=== PATIENT | male | born 1965 | race Caucasian/White ===

== ENCOUNTER 2016-06-28 15:57 | Inpatient (IN) | payer MEDICAID ==
[~2016-06-28] VITALS: Ht 175.3 cm; Wt 77.1 kg
[~2016-06-28 15:57] MED LIST: DEPAKOTE ER500 MG PO; DEPAKOTE500 MG PO; SEROQUEL100 MG PO; ZOLOFT25 MG PO
[2016-06-28 16:17] VITALS: BP 151/89
[2016-06-28] MEDS ORDERED: SOMA350 MG PO (16:27)
[2016-06-28] MEDS ORDERED: PEPCID20 MG PO (16:28)
[2016-06-28] MEDS ORDERED: NEURONTIN 300300 MG PO (16:28)
[2016-06-28] MEDS ORDERED: ZOFRAN4 MG PO (16:29)
[2016-06-28] MEDS ORDERED: OXYCONTIN30 MG PO (16:30)
[2016-06-28] MEDS ORDERED: OXYCODONE HCL10 MG PO (16:31)
[2016-06-28] MEDS ORDERED: MIRALAX17 GM PO ×2 (17:01→17:02)
[2016-06-28] MEDS ORDERED: TEMAZEPAM30 MG PO (17:02)
--- NOTE | 2016-06-28 18:04 | NUR ---
SITTING UP IN BED WATCHING TV. ATE SUPPER AND USED WALKER TO GET TO BATHROOM TO VOID. PAIN MEDS CONTROLLING PAIN. CALL LIGHT IN REACH
--- NOTE | 2016-06-28 20:03 | NUR ---
PT LYING IN BED AND WATCHING TV.
--- NOTE | 2016-06-28 20:30 | NUR ---
PT C/O OF PAIN IN UPPER LEFT LEG, A LEVEL OF 9, ON A SCALE OF 0-10, PAIN MED GIVEN.
--- NOTE | 2016-06-28 23:08 | NUR ---
PT STATE HE HAS LESS PAIN, A SCALE OF 7, CONTINUE MONITOR CLOSELY.
[2016-06-29 01:59] VITALS: BP 140/82
--- NOTE | 2016-06-29 02:50 | NUR ---
PT C/O PAIN IN LEG, A LEVEL OF 7, ON A SCALE OF 0-10. PAIN MED GIVEN. MONITOR CLOSELY.
--- NOTE | 2016-06-29 03:40 | NUR ---
PT STATE HE HAS LESS PAIN, A LEVEL OF 5, CONTINUE MONITOR CLOSELY.
--- NOTE | 2016-06-29 05:42 | NUR ---
PT SIT UP AND WATCH TV.
[2016-06-29 06:36] LABS: BASOPHILS 0.6 % (0-2); EOSINOPHILS 6.7 % (0-7); HEMATOCRIT 36.3 % (42.0-54.0); HEMOGLOBIN 11.8 g/dL (13.5-17.5); IMMATURE GRANULOCYTES 0.2 % (0-5); LYMPHOCYTES 40.6 % (15-50); MCH 30.3 pg (26.0-34.0); MCHC 32.5 g/dL (31.0-37.0); MCV 93.3 fL (80.0-100.0); MEAN PLATELET VOLUME 9.6 fL (7.4-10.4); MONOCYTES 9.5 % (2-11); NEUTROPHILS 42.4 % (40-80); RBC 3.89 10x6/uL (4.20-6.10); RDW 15.2 % (11.5-14.5)
[2016-06-29 06:50] LABS: PLATELET COUNT 273 10x3/uL (130-400)
[2016-06-29 07:05] LABS: CALC OSMOLALITY 274 mosm/kg (275-300); CALCIUM 8.5 mg/dL (8.5-10.1); CARBON DIOXIDE 29.5 mmol/L (21.0-32.0); CHLORIDE - SERUM 102 mmol/L (98-107); CREATININE - SERUM 0.8 mg/dL (0.6-1.3); GLUCOSE 104 mg/dL (74-106); POTASSIUM - SERUM 3.7 mmol/L (3.5-5.1); SODIUM 138 mmol/L (136-145); UREA NITROGEN 9 mg/dL (7-18); eGFR NON AFRICAN AMERICAN > 90 mL/min (90-120)
[2016-06-29 08:47] VITALS: BP 141/76
[2016-06-29 12:42] VITALS: Ht 175.3 cm; Wt 77.1 kg
[2016-06-29 18:53] VITALS: BP 129/71
--- NOTE | 2016-06-29 19:15 | NUR ---
PT SITTING UP IN RECLINER CHAIR. PT COMPLAINS OF HAVING A PAIN LEVEL OF 9, BUT STATES THAT THE PAIN GOES IN AND OUT. PT IS ALERT & ORIENTED. PT USES WALKER. CALL LIGHT WITHIN REACH.
--- NOTE | 2016-06-29 19:30 | NUR ---
PT WOULD PREFER TO HAVE SOME FREEDOM IN HIS ROOM, ENCOURAGED PT TO REQUEST ASSISTANCE IF FEELING WEAK OR DIZZY FOR EXAMPLE OR IN PAIN, PT ALERT, ORIENTED, RESPIRATIONS REGULAR AND UNLABORED.
--- NOTE | 2016-06-29 20:48 | NUR ---
PT SIGNED BED/CHAIR ALARM WAIVER.
--- NOTE | 2016-06-30 00:48 | NUR ---
PT IN BED WITH HOB UP FOR COMFORT, EYES CLOSED, CHEST RISING AND FALLING, BED BED IN LOWEST POSITION AND CALL LIGHT WITHIN REACH.
--- NOTE | 2016-06-30 04:24 | NUR ---
PT IN BED WITH HOB UP FOR COMFORT, EYES CLOSED, RESPIRATIONS EVEN AND UNLABORED, BED IN LOWEST POSITION AND CALL LIGHT WITHIN REACH.
[2016-06-30 07:00] VITALS: BP 138/89
--- NOTE | 2016-06-30 08:10 | NUR ---
SHIFT ASSMT COMPLETED.DRSG INTACT TO L AKA.CL IN REACH.
--- NOTE | 2016-06-30 12:00 | NUR ---
SITTING UP IN CHAIR EATING LUNCH.INDEPENDENT IN ROOM.
--- NOTE | 2016-06-30 16:00 | NUR ---
IN WC.DENIES NEEDS.
[2016-06-30 19:00] VITALS: BP 130/84
--- NOTE | 2016-06-30 19:00 | NUR ---
PT LYING IN BED, WATCHING TV. ALERT AND ORIENTED. BED WAIVER. PT HAS NO COMPLAINTS AT THIS TIME. BED IN LOWEST POSITION AND CALL LIGHT WITHIN REACH.
--- NOTE | 2016-06-30 23:00 | NUR ---
PT LYING IN BED, EYES CLOSED, CHEST RISING AND FALLING, BED IN LOWEST POSITION AND CALL LIGHT WITHIN REACH.
--- NOTE | 2016-07-01 03:07 | NUR ---
PT RESTING, EYES CLOSED. BED LOW. CL IN REACH.
--- NOTE | 2016-07-01 05:08 | NUR ---
PT IN BED, WATCHING TV. BED IN LOWEST POSITION AND CALL LIGHT WITHIN REACH.
--- NOTE | 2016-07-01 06:54 | NUR ---
ONE STAPLE WAS HALF WAY OUT OF LEFT LEG STUMP. REMOVED STAPLE. PT TOLERATED PROCEDURE WELL.
--- NOTE | 2016-07-01 08:15 | NUR ---
PT SITTING ON SIDE OF THE BED EATING BREAKFAST CALL LIGHT IN REACH WILL MONITER
--- NOTE | 2016-07-01 12:00 | NUR ---
AD BRYSON IN ROOM.DENIES NEEDS.
--- NOTE | 2016-07-01 14:30 | NUR ---
REMOVED 68 DAISY FROM LEFT STUMP INCISION WELL APPROXIMATED APPLIED STERI STRIPS PT TOLERATED WELL
--- NOTE | 2016-07-01 17:16 | NUR ---
PT RESTING IN BED WITH EYES OPEN CALL LIGHT IN REACH WILL MONITER
[2016-07-01 20:00] VITALS: BP 153/96
--- NOTE | 2016-07-01 20:00 | NUR ---
PT IN W/C, WATCHING TV. ALERT AND ORIENTED. BED WAIVER. PT HAS NO COMPLAINTS AT THIS TIME. CALL LIGHT WITHIN REACH.
--- NOTE | 2016-07-02 | NUR ---
PT LYING IN BED, EYES CLOSED, CHEST RISING AND FALLING, BED IN LOWEST POSITION AND CALL LIGHT WITHIN REACH.
--- NOTE | 2016-07-02 04:00 | NUR ---
PT IN W/C, WATCHING TV. CALL LIGHT WITHIN REACH.
--- NOTE | 2016-07-02 05:42 | NUR ---
PT RESTING, EYES CLOSED. BED LOW. CL IN REACH.
[2016-07-02 07:23] LABS: BASOPHILS 0.4 % (0-2); EOSINOPHILS 6.5 % (0-7); HEMATOCRIT 38.3 % (42.0-54.0); HEMOGLOBIN 12.5 g/dL (13.5-17.5); IMMATURE GRANULOCYTES 0.2 % (0-5); LYMPHOCYTES 31.8 % (15-50); MCH 30.8 pg (26.0-34.0); MCHC 32.6 g/dL (31.0-37.0); MCV 94.3 fL (80.0-100.0); MEAN PLATELET VOLUME 9.5 fL (7.4-10.4); MONOCYTES 9.9 % (2-11); NEUTROPHILS 51.2 % (40-80); PLATELET COUNT 277 10x3/uL (130-400); RBC 4.06 10x6/uL (4.20-6.10); RDW 15.4 % (11.5-14.5); WBC 5.3 10x3/uL (4.8-10.8)
[2016-07-02 07:30] LABS: CALC OSMOLALITY 273 mosm/kg (275-300); CALCIUM 8.8 mg/dL (8.5-10.1); CARBON DIOXIDE 31.6 mmol/L (21.0-32.0); CHLORIDE - SERUM 101 mmol/L (98-107); CREATININE - SERUM 0.7 mg/dL (0.6-1.3); GLUCOSE 94 mg/dL (74-106); POTASSIUM - SERUM 3.8 mmol/L (3.5-5.1); SODIUM 138 mmol/L (136-145); UREA NITROGEN 6 mg/dL (7-18); eGFR NON AFRICAN AMERICAN > 90 mL/min (90-120)
--- NOTE | 2016-07-02 07:30 | NUR ---
SITTING UP IN CHAIR IN ROOM WATCHING TV. APPEARS ANXIOUS C/O HE IS WANTING A CIGARETTE. DENIES WANTING SMOKING PATCH. UP WITH W/C AND WALKER.
[2016-07-02 10:13] VITALS: BP 124/67
--- NOTE | 2016-07-02 10:28 | NUR ---
STILL ANXIOUS. SITTING IN ROOM WATCHING TV. NOW ASKING FOR SMOKING PATCH.
--- NOTE | 2016-07-02 16:36 | NUR ---
SITTING IN W/C IN ROOM. STILL RESTLESS BUT NOT BAD THIS MORNING.
--- NOTE | 2016-07-02 18:15 | NUR ---
SITTING UP IN CHAIR EATING SUPPER. DENIES NEEDS. CALL LIGHT IN REACH
[2016-07-02 19:18] VITALS: BP 150/87
--- NOTE | 2016-07-02 20:12 | NUR ---
PT C/O PAIN IN LEG, A SCALE OF 9, ON A SCALE OF 0-10. PAIN MED GIVEN, AND MONITOR CLOSELY.
--- NOTE | 2016-07-02 21:20 | NUR ---
PT STATE LESS PAIN IN LEG AFTER PAIN MED. BUT STILL A SCALE OF 6, CONTINUE MONITOR CLOSELY.
--- NOTE | 2016-07-03 00:20 | NUR ---
PT REST QUIETLY IN BED, BED IN LOW POSITION, CALL LIGHT WITHIN REACH.
--- NOTE | 2016-07-03 01:00 | NUR ---
PT RESTING, EYES CLOSED. BED LOW. CL IN REACH.
--- NOTE | 2016-07-03 04:07 | NUR ---
PT WOKE UP IN BED, AND STATE HE CAN'T GO BACK SLEEP, BECAUSE PAIN IN LEG, A SCALE OF 8, PAIN MED GIVEN, MONITOR CLOSELY.
--- NOTE | 2016-07-03 04:55 | NUR ---
PT STATE LESS PAIN IN LEG AFTER PAIN MED, A SCALE OF 5. CONTINUE MONITOR CLOSELY.
--- NOTE | 2016-07-03 08:06 | NUR ---
SITTING IN CHAIR IN ROOM EATING BREAKFAST. CALL LIGHT IN REACH
--- NOTE | 2016-07-03 09:41 | RHP ---
PATIENT: YEE BROOKS MEDICAL RECORD: [id number] ACCOUNT: [id number] LOCATION:[facility]1116 : 61 ADMISSION DATE: 06/28/16 REHABILITATION HISTORY AND PHYSICAL EXAMINATION POST ADMISSION PHYSICIAN EXAMINATION Post-admission Physical Examination and History and Physical DATE OF ADMISSION: 06/28/2016 ADMITTING DIAGNOSIS: Left didwp-tme-duvg amputation. HISTORY OF PRESENT ILLNESS: The patient was admitted for rehab for a left fvbus-mrl-mxzo amputation. He was in the [facility] for left gpuak-jkr-onpa amputation by Dr. Silvano Patel. He has had multiple failed surgeries to his left knee that originally started with his first surgery in May 2014 with a total knee arthroplasty that has had several revisions and ultimately failed and after evaluation between the physician and the patient, they opted to have a left kkphk-umv-ahyw amputation. He will definitely need inpatient rehab to get back to his prior level of functioning and also a prosthesis to assess this amputation. COMORBIDITIES: Include a left prosthetic knee, seizure disorder following multiple failed left lower extremity 6 surgeries, history of substance abuse, depression and pain. PAST MEDICAL HISTORY: Significant for depression, left femur fracture, left knee pain, infection over prosthetic knee joint, a seizure disorder and substance abuse. PAST SURGICAL HISTORY: Includes left lower extremity times 5. ALLERGIES: CODEINE AND BENADRYL. CURRENT MEDICATIONS: He is on a Nicoderm patch, Restoril 30 mg q.h.s. p.r.n. He is on Colace 100 mg b.i.d., polyethylene glycol 17 grams in 8 ounces of water daily. He is on Oxy.IR 10 mg q. 4 hours p.r.n. pain, OxyContin 20 mg b.i.d., Zofran 4 mg q.8 hours p.r.n., Neurontin 300 mg t.i.d., Pepcid 20 mg b.i.d. and Soma 350 mg t.i.d. p.r.n. HABITS: He does have a history of tobacco use. He denies any type of illicit drug use at this time. FAMILY HISTORY: Noncontributory. SOCIAL HISTORY: The patient wants to be able to continue living at home with family nearby and hopefully get back to his prior level of functioning prior to his left vnpsu-kew-ltav amputation. REVIEW OF SYSTEMS: GENERAL: He denies weakness or fatigue. HEENT: He denies cold, cough, or congestion. CARDIOVASCULAR: Denies chest pain. PHYSICAL EXAMINATION: HISTORY AND PHYSICAL [id number] CECILIAYEE VITAL SIGNS: Stable, afebrile. GENERAL: An elderly gentleman, in no acute distress, alert upon exam. HEENT: Normocephalic and atraumatic. Mucosa moist. NECK: Supple. No lymphadenopathy. LUNGS: Clear. HEART: Regular rate and rhythm. ABDOMEN: Benign. EXTREMITIES: Consistent with a left wcmkj-sgn-lslj amputation, still has brice in place that we are going to removed today. NEUROLOGIC: Seems intact. LABORATORY DATA: His white count is 5000, his H&H are 11.8 and 36.3 and platelet count was 273. His chemistry showed a sodium of 138, potassium 3.7, BUN and creatinine of 9 and 0.8 and blood sugar is noted to be 104. ASSESSMENT: This is a 50-year-old gentleman, who was admitted to the rehab with a working diagnosis of left wpxxz-fsf-pqlo amputation. The patient has potential to make improvement. We instituted the following multidisciplinary therapies including to, but not limited to physical, occupational, respiratory, speech, nutritional services, prosthetics and orthotics. Given his complex condition and risk for more complications, rehabilitation services cannot be provided at a lower level of care such as a halfway facility. PLAN: 1. Admit to [facility] rehab for intensive inpatient therapy to include the following disciplines: A. Physical therapy to improve gait, all transfer skills and bed mobility to a modified independent level. B. Occupational therapy to improve activities of daily living to a modified independent level. C. Case management to assist with discharge planning and placement options. D. Nutrition to assist with nutritional needs. E. Rehabilitation nursing to assist in monitoring the patient's underlying medical conditions and to assist with any type of bowel or bladder management. 2. The patient's current medication and medical care will be continued. 3. The patient will be placed on standard fall precautions. 4. The patient's estimated length of stay is approximately 7-10 days. 5. We will go ahead and consult ____ brace to start working on getting him on artificial limb. TRANSINT:[id number] Voice Confirmation ID: [id number] DOCUMENT ID: [id number] BLU GUZMAN MD at [id number] CC: [id number] DICTATION DATE: 07/01/16 1130 INSPECTOR MACHINED PARTS: 07/01/16 192 ADM IN [facility] [address] [place] [address]
[2016-07-03 09:46] VITALS: BP 139/100
--- NOTE | 2016-07-03 12:13 | NUR ---
per patient request , he would like referral sent to [facility] for possible admisssion. referral faxed tenative discharge date is 07/10/16.
--- NOTE | 2016-07-03 14:00 | NUR ---
Nutrition Follow Up: Pt reported that everything is great. Pt is eating 100% meal avg on a regular diet. Wt stable. +BM 07/02/16. Meds and labs reviewed. Rec continue current diet. RD following.
[2016-07-03 19:12] VITALS: BP 131/78
--- NOTE | 2016-07-03 19:45 | NUR ---
PT UP IN W/C, DENIES PAIN, DENIES NEEDS, RESPIRATIONS REGULAR AND UNLABORED. NO S/S OF ACUTE DISTRESS.
--- NOTE | 2016-07-03 19:50 | NUR ---
PT SIT UP IN BED AND WATCH TV.
--- NOTE | 2016-07-03 20:10 | NUR ---
PT C/O OF PAIN IN LEG, A SCALE OF 7, PAIN MED GIVEN.
--- NOTE | 2016-07-03 21:50 | NUR ---
PT STATE HIS LEG LESS PAIN AFTER PAIN MED, A SCALE OF 5. CONTINUE MONITOR CLOSELY.
--- NOTE | 2016-07-04 01:50 | NUR ---
PT REST QUIETLY IN BED, BED IN LOW POSITION, CALL LIGHT WITHIN REACH.
--- NOTE | 2016-07-04 04:13 | NUR ---
PT REST QUIETLY IN BED, EYE CLOSE, BED IN LOW POSITION, CALL LIGHT WITHIN REACH.
--- NOTE | 2016-07-04 08:00 | NUR ---
UP IN WC IN HALLWAY.DENIES NEEDS.
[2016-07-04 08:28] VITALS: BP 133/82
--- NOTE | 2016-07-04 08:45 | NUR ---
PT RESTING IN BED WITH EYES OPEN CALL LIGHT IN REACH WILL MONITER
--- NOTE | 2016-07-04 14:39 | NUR ---
CARE TEAM MEETING: PATIENT PROGRESSING IN THERAPY . TENATIVE DISCHARGE DATE IS 07/10/16. SPOKE WITH PATIENT REGARDING GOING TO ANOTHER FACILITY DUE TO INSURANCE. WILL GO TO [facility] WILL ACCEPT HIS INSURANCE. WILL CONTINUE TO FOLLOW WITH PATIENT.
--- NOTE | 2016-07-04 16:46 | NUR ---
PT RESTING IN BED WITH EYES OPEN CALL LIGHT IN REACH WILL MONITER
[2016-07-04 19:40] VITALS: BP 140/83
--- NOTE | 2016-07-04 19:40 | NUR ---
PT IN W/C, WATCHING TV. ALERT AND ORIENTED. BED WAIVER. PT HAS NO COMPLAINTS AT THIS TIME. CALL LIGHT WITHIN REACH.
--- NOTE | 2016-07-04 23:40 | NUR ---
PT LYING IN BED, EYES CLOSED, CHEST RISING AND FALLING, BED IN LOWEST POSITION AND CALL LIGHT WITHIN REACH.
--- NOTE | 2016-07-05 03:10 | NUR ---
PT RESTING QUIETLY, NO S/S OF ACUTE DISTRESS.
--- NOTE | 2016-07-05 04:40 | NUR ---
PT IN W/C, WATCHING TV. CALL LIGHT WITHIN REACH.
--- NOTE | 2016-07-05 08:00 | NUR ---
SHIFT ASSMT COMPLETED.DENIES NEEDS.INDEPENDENT IN ROOM.KILN STOKER ON LT AKA.
[2016-07-05 08:12] VITALS: BP 124/82
--- NOTE | 2016-07-05 12:00 | NUR ---
EATING LUNCH.CL IN REACH.
--- NOTE | 2016-07-05 16:00 | NUR ---
SITTING UP IN WC.
[2016-07-05 20:05] VITALS: BP 142/74
--- NOTE | 2016-07-05 20:15 | NUR ---
PT C/O PAIN AND DISCOMFORT OF STUMP TRUCKLOAD CHECKER, PT VERBALIZED UNDERSTANDING OF PURPOSE OF THE STUMP TRUCKLOAD CHECKER. PT TALKATIVE. PT ABLE TO DON AND UNDON STUMP TRUCKLOAD CHECKER, INCISION WELL APPROXIMATED, TWO STERI STRIPS REMAINING. NO S/S OF REDNESS.
--- NOTE | 2016-07-05 21:45 | NUR ---
PT VISITING IN HALLWAY WITH OTHER PATIENT. DENIES ANY NEEDS.
--- NOTE | 2016-07-06 00:10 | NUR ---
RESTING QUIETLY IN ROOM WATCHING TV, NO NEEDS NOTED.
--- NOTE | 2016-07-06 02:18 | NUR ---
PT RESTING IN SUPINE POSITION, RESPIRATIONS REGULAR AND UNLABORED. EYES CLOSED. . N0 S/S OF ACUTE DISTRESS.
--- NOTE | 2016-07-06 06:51 | NUR ---
pt up in w/c roaming the halls, c/o phantom pain. pt states the gabapentin helps.
[2016-07-06 07:30] LABS: BASOPHILS 0.4 % (0-2); EOSINOPHILS 8.6 % (0-7); HEMATOCRIT 38.4 % (42.0-54.0); HEMOGLOBIN 12.5 g/dL (13.5-17.5); IMMATURE GRANULOCYTES 0.2 % (0-5); LYMPHOCYTES 41.3 % (15-50); MCH 30.4 pg (26.0-34.0); MCHC 32.6 g/dL (31.0-37.0); MCV 93.4 fL (80.0-100.0); MEAN PLATELET VOLUME 9.2 fL (7.4-10.4); MONOCYTES 13.2 % (2-11); NEUTROPHILS 36.3 % (40-80); PLATELET COUNT 243 10x3/uL (130-400); RBC 4.11 10x6/uL (4.20-6.10); RDW 14.9 % (11.5-14.5); WBC 4.8 10x3/uL (4.8-10.8)
[2016-07-06 07:45] LABS: CALC OSMOLALITY 272 mosm/kg (275-300); CARBON DIOXIDE 32.3 mmol/L (21.0-32.0); CHLORIDE - SERUM 102 mmol/L (98-107); CREATININE - SERUM 0.8 mg/dL (0.6-1.3); GLUCOSE 107 mg/dL (74-106); POTASSIUM - SERUM 3.8 mmol/L (3.5-5.1); SODIUM 137 mmol/L (136-145); UREA NITROGEN 11 mg/dL (7-18); eGFR NON AFRICAN AMERICAN > 90 mL/min (90-120)
--- NOTE | 2016-07-06 08:05 | NUR ---
In w/c self propeling self in hallway, verbalized name and , no distress assessed. Transfers self without any incidents.
[2016-07-06 10:48] VITALS: BP 139/99
--- NOTE | 2016-07-06 12:59 | NUR ---
LEFT MESSAGE ON VOICEMAIL REGARDING WHY PATIENT NEEDING A SNF. LEFT MESSAGE THAT NO ONE AT HOME TO HELP WITH WOUND CARE AND NEEDING TO WEAR SHRINKAGE STOCKING FOR HIS PROTHESIS AND NEEDING TO LEARN TO WALK. LEFT FOR HER TO CALL IF ANY QUESTIONS. HER NUMBER IS [phone]. [phone]. CLINICALS FAXED TO [phone] AUTH # [id number] WITH CONFORMATION RECIEVED
--- NOTE | 2016-07-06 13:55 | NUR ---
In with therapy, no distress.
--- NOTE | 2016-07-06 18:39 | NUR ---
Sitting up in W/C, self propels. No distress noted. Verbalized no complaints.
--- NOTE | 2016-07-06 19:30 | NUR ---
PT SIT IN BED WATCH TV.
--- NOTE | 2016-07-06 21:10 | NUR ---
PT C/O PAIN IN LEG, A SCALE OF 8, PAIN MED GIVEN, CONTINUE MONITOR CLOSELY.
[2016-07-07 02:06] VITALS: BP 119/72
--- NOTE | 2016-07-07 03:15 | NUR ---
PT. IS UP IN W/C IN THE THERAPY ROOM DOING HIS LAUNDRY AND DRINKING COFFEE. NO VOICED NEEDS AT THIS TIME AND HE KNOWS HOW TO GET A HOLD OF NURSE WHEN NEEDED.
--- NOTE | 2016-07-07 03:44 | NUR ---
PT AWAKE AND DRINK COFFEE.
--- NOTE | 2016-07-07 09:00 | NUR ---
SITTING IN W/C IN ROOM. PAIN MEDS GIVEN ORDERED AND REQUESTED. STATES HE IS HAVING PAIN TO LLE STUMP AND HAVING PHANTOM PAIN ALSO TO LLE.
[2016-07-07 09:51] VITALS: BP 132/94
--- NOTE | 2016-07-07 13:26 | NUR ---
IN W/C IN ROOM. DENIES NEEDS. CALL LIGHT IN REACH
--- NOTE | 2016-07-07 16:58 | NUR ---
IN W/C ROLLING AROUND UNIT. DENIES NEEDS.
[2016-07-07 19:55] VITALS: BP 130/89
--- NOTE | 2016-07-07 20:59 | NUR ---
PT HS MEDS ADMINISTERED. PT DENIES NEEDS. WCTM. BED LOW. CL IN REACH.
--- NOTE | 2016-07-08 03:42 | NUR ---
PT RESTING, EYES CLOSED. BED LOW. CL IN REACH.
--- NOTE | 2016-07-08 06:10 | NUR ---
PT UP AND SHOWERED. DENIES NEEDS. BED LOW. CL IN REACH.
--- NOTE | 2016-07-08 08:13 | NUR ---
SITTING UP IN W/C IN ROOM EATING BREAKFAST. DENIES NEEDS
[2016-07-08 09:31] VITALS: BP 165/78
--- NOTE | 2016-07-08 14:57 | NUR ---
RESTING QUIETLY IN BED. NO S/S DISTRESS. CALL LIGHT IN REACH
--- NOTE | 2016-07-08 18:50 | NUR ---
SHAVED HIMSELF TODAY AT SINK. DENIES NEEDS. CALL LIGHT IN REACH
--- NOTE | 2016-07-08 19:10 | NUR ---
PT UP IN WHEELCHAIR AT NURSE'S STATION REQUESTING ICE. NO SIGN/SYMPTOMS OF PAIN OR DISTRESS. NO OTHER NEEDS MADE KNOWN AT THIS TIME. PT RETURNED TO ROOM. WILL CONTINUE TO OBSERVE
[2016-07-08 20:27] VITALS: BP 115/85
--- NOTE | 2016-07-09 01:32 | NUR ---
PT IN BED WITH EYES OPEN AT THIS TIME. PT SLEEPING INTERMITTENTLY. STATES PAIN 9/10 WITH PRN PAIN MEDICATION GIVEN PER APR. NO OTHER NEEDS MADE KNOWN. CALL LIGHT IN REACH. WILL CONTINUE TO OBSERVE.
--- NOTE | 2016-07-09 02:33 | NUR ---
PT REQUEST SHOWER AND WAS ASSISTED. MIN ASSIST NEEDED. LINENS CHANGED AND CLEAN SCRUBS GIVEN. REQUEST PRN SOMA AND WAS GIVEN PER MAR. IN BED WITH EYES OPEN WATCHING TV AT THIS TIME. CALL LIGHT IN REACH. WILL CONTINUE TO OBSERVE.
--- NOTE | 2016-07-09 08:15 | NUR ---
PT RESTING IN BED WITH EYES OPEN CALL LIGHT IN REACH NO PROBLEMS WILL MONITER
[2016-07-09 08:37] VITALS: BP 127/83
[2016-07-09] MEDS ORDERED: NEURONTIN 400400 MG PO (08:37)
[2016-07-09] MEDS ORDERED: OXYCODONE HCL5 MG PO (08:37)
[2016-07-09] MEDS ORDERED: OxyCONTIN PO (08:37)
--- NOTE | 2016-07-09 17:09 | NUR ---
PT RESTING IN BED WITH EEYS OPEN CALL LIGHT IN REACH WILL MONITER
--- NOTE | 2016-07-09 18:14 | NUR ---
PT UP IN WC, VISITOR IN ROOM. DENIES NEEDS.
--- NOTE | 2016-07-09 19:54 | NUR ---
pt resting quietly, c/o pain. medicated with pain medication and soma per request.
--- NOTE | 2016-07-09 20:30 | NUR ---
PT NOT IN ROOM.
[2016-07-09 21:12] VITALS: BP 132/93
--- NOTE | 2016-07-09 21:30 | NUR ---
PT NOT IN HIS ROOM.
--- NOTE | 2016-07-09 22:15 | NUR ---
PT IN ROOM, LYING IN BED, DENIES NEEDS, MEDICATED WITH PM MEDICATIONS, NO S/S OF ACUTE DISTRESS.
--- NOTE | 2016-07-10 04:20 | NUR ---
PT RESTING WITH EYES CLOSED.
--- NOTE | 2016-07-10 07:30 | NUR ---
IN WC WHEELING AROUND UNIT. DENIES NEEDS.
[2016-07-10 09:24] VITALS: BP 142/86
--- NOTE | 2016-07-10 10:46 | NUR ---
IN W/C SITTING IN ROOM. SCHEDULED TO D/C TODAY. WHEELS SELF AROUND UNIT
--- NOTE | 2016-07-10 15:10 | NUR ---
PATIENT DISCHARGING HOME WITH FRIENDS. PATIENT INSTRUCTED TO CALL MAKENNA CUBA AT [facility] IF UNABLE TO MANAGE AT HOME . PATIENT HAS WHEELCHAIR AND CRUTCHES. DR. MICHELLE MOHR 07/17/16 @ 3:00.
--- NOTE | 2016-07-10 15:15 | NUR ---
D/C FROM UNIT WITH ALL PERSONAL BELONGINGS. TOOK ALL PERSONAL BELONGINGS WITH HIM. DENIES NEEDS OR QUESTIONS.
== END 2016-07-10 15:15 | disposition home or self-care (01) | DRG 561 ==
LOC: D.REHAB 15:57
PROVIDERS: ADMIT Emergency Medicine
DX: Z47.81 Encounter for orthopedic aftercare following surgical amputation (principal); G40.909 Epilepsy, unspecified, not intractable, without status epilepticus; F32.9 Major depressive disorder, single episode, unspecified